=== PATIENT | female | born 1995 | race African-American/Black ===

== ENCOUNTER 2023-05-08 15:09 | Emergency (ER) | payer OTHER, SELFPAY ==
--- NOTE | ~2023-05-08 | XR_ITS ---
EXAMINATION: XR chest 1V portable INDICATION: Shortness of breath TECHNIQUE: Portable AP chest at 1746 hours COMPARISON: None available FINDINGS: There are minimal airspace opacities of the right lung base. No pleural effusion or pneumot horax. The cardiomediastinal silhouette is normal. IMPRESSION: 1. Minimal right basilar airspace opacity, consistent with atelectasis versus pneumonia. Reviewed, dictated and finalized at location F. IMPRESSION: 1. Minimal right basilar airspace opacity, consistent with atelectasis versus p neumonia.
[2023-05-08 15:34] VITALS: BP 114/66; PULSE 94; RESP 14; TEMP 36.4; O2SAT 100
[2023-05-08 16:08] VITALS: O2SAT 99
[2023-05-08] MEDS: ALBUTEROL SULFATE NEB 2.5 MG/3 ML INH INHALATION (17:47)
[2023-05-08] MEDS: IPRATROPIUM BR 0.02% INH SOLN 0.5 MG/2.5 ML VIAL INHALATION (17:47)
[2023-05-08 17:49] VITALS: PULSE 85; RESP 20
[2023-05-08 18:00] VITALS: PULSE 82; RESP 20
[2023-05-08] MEDS: predniSONE 20 MG TABLET 60 MG PO (18:01)
--- NOTE | 2023-05-08 21:04 | ED.GENADULT ---
HPI - General Adult General Chief complaint: Asthma Stated complaint: asthma exacerbation Time Seen by Provider: 05/08/23 17:03 Source: patient Mode of arrival: ambulatory Limitations: no limitations History of Present Illness HPI narrative: 28-year-old female presents today with complaints of increasing shortness of breath and wheezing that started today. Patient has a history of asthma that was diagnosed in December. Patient is only on albuterol. Patient has used her albuterol multiple times today with little relief. 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 She told her office that she could not drive that due to her asthma but they still placed her in the diesel. Not long after being on it she started with some chest tightness and shortness of breath using her albuterol inhaler without relief. Patient has last been at her primary care in October. Related Data Allergies Allergy/AdvReac Type Severity Reaction Status Date / Time ibuprofen Allergy Severe Rash Verified 05/08/23 15:09 Review of Systems Review of Systems: All systems reviewed & are unremarkable except as noted in HPI and below [facility] Social History Social History (Updated 06/07/22 @ 10:11 by Esperanza Farfan MA) Smoking status: Never smoker Alcohol intake: never Substance use: never Substance use type: does not use Living arrangements: alone Gender identity (if verbalized by the patient): Female Sexual Orientation (if Verbalized by the Patient): Straight or Heterosexual Exam Const: General: cooperative, healthy appearing, comfortable, no acute distress and well developed Orientation/consciousness: patient oriented x3 HENMT: Head: normal to inspection Eyes: General: appearance normal, both eyes and all related structures Resp: Effort & Inspection: normal respiratory effort and able to speak in complete sentences Auscultation: no wheezes and diminished lung sounds Cardio: Rate: regular rate Rhythm: regular rhythm Heart sounds: S1 normal heart sound present and S2 normal heart sound present Neuro: General: patient oriented x3 Course Course Emergency Course: Patient with improvement after receiving albuterol ipratropium and prednisone. Discussed x-ray findings. Patient to be discharged home with p.o. antibiotics, steroids, and albuterol. Patient is to follow-up with primary care provider. Vital Signs Vital signs: Vital Signs Temperature 97.5 F L 05/08/23 15:34 Pulse Rate 94 05/08/23 15:34 Respiratory Rate 14 05/08/23 15:34 Blood Pressure 114/66 05/08/23 15:34 Pulse Oximetry 100 05/08/23 15:34 Oxygen Delivery Room Air 05/08/23 15:34 Temperature 97.5 F L 05/08/23 15:34 Pulse Rate 82 05/08/23 18:00 Respiratory Rate 20 05/08/23 18:00 Blood Pressure 114/66 05/08/23 15:34 Pulse Oximetry 99 05/08/23 16:08 Oxygen Delivery Room Air 05/08/23 16:08 Medical Decision Making MDM Narrative Medical decision making narrative: 28-year-old female HPI as noted. Differentials as noted below. Patient with congestion but states that it has been that way for many months. Denies any runny nose, cough, postnasal drip low suspicion for URI. Chest x-ray shows a possible pneumonia to right base. Symptoms do not correlate with pneumonia but due to asthma and cute onset will treat with antibiotics at this time. P.o. steroids and albuterol also. Patient has been obstruction is follow-up with her primary care provider for further management of her asthma as she might need new medications. She states she is understanding and okay with being discharged home Differential Diagnosis Differential Diagnosis: Asthma exacerbation, pneumonia, shortness of breath, URI Vital Signs Vital Signs: Vital Signs Temperature 97.5 F L 05/08/23 15:34 Pulse Rate 94 05/08/23 15:34 Respiratory Rate 14 05/08/23 15:34 Blood Pressure 114/66 05/08/23 15:34 Pulse Oximetry 100 05/08/23 15:34 Oxygen D
== END 2023-05-08 18:32 | disposition home or self-care (01) ==
PROVIDERS: Emergency Provider Nurse Practitioner Family
DX: J45.901 Unspecified asthma with (acute) exacerbation (principal)
CPT/HCPCS: 71045; 94640; 99283; J7512

== ENCOUNTER 2024-03-24 07:42 | Outpatient (CLI) | payer OTHER, SELFPAY ==
[2024-03-24 08:21] LABS: Hematocrit 31.2 % (37.0-47.0)
== END 2024-03-24 07:43 | disposition home or self-care (01) ==
LOC: ANHSURGERY 07:48
PROVIDERS: Anesthesiology; Visit Provider Obstetrics & Gynecology
DX: N93.9 Abnormal uterine and vaginal bleeding, unspecified (principal)
CPT/HCPCS: 36415; 85014; 85018

== ENCOUNTER 2024-03-29 00:09 | Day surgery (SDC) | payer OTHER, SELFPAY ==
[2024-03-19 16:20] VITALS: BMI 21.9
--- NOTE | 2024-03-19 16:21 | PC.NURSE ---
Report to the Outpatient Waiting Room, entrance under the green pavilion located off [facility], at time ___1130am____ on date ___[id number]____. Planned Procedure Time: ____1:30pm____. Time changes happen often and if your time is changed the preop area will call you the afternoon before. - You and your visitor will be asked to self-screen and do not enter if you have any COVID symptoms. - A mask is optional within the hospital at this time. Patients may have clear liquids (water, carbonated beverages, clear teas, apple juice) until 3 hours prior to surgery with a maximum of 20 ounces. STOP AT 10:30 AM No food from midnight until time of surgery - Take the following medications with a SIP of water the morning of surgery: N/A (PATIENT IS NOT ON ANY HOME MEDICATIONS) PATIENT IS RECEIVING WEEKLY IRON INFUSIONS EVERY FRIDAY. CONTINUE YOUR IRON INFUSIONS UP UNTIL DATE OF SURGERY PER DR. TRACY. Please no make-up, nail micronesian, hairspray, perfume, deodorant, or body powder the day of surgery. No jewelry (including any body piercings) or valuables the day of surgery, leave them at home. Please take a shower or bath the night before, or the morning of, surgery with an antibacterial soap. Wear comfortable, loose fitting clothing. - Jewelry must be removed prior to entering the operating room. Rings and piercings that are not removed may be cut off. - The hospital will not accept responsibility for valuables. - Please leave all valuables, including medications, at home the day of surgery. If you are going home after surgery, a licensed shuttle bus driver must drive you home. - NO public transportation without another adult if you receive anesthesia. - We recommend that an adult stay with you for 24 hours following discharge. - We also recommend that you do not drive, make important decision, drink alcoholic beverages, or take any drugs that were not prescribed by your health care provider for at least 24 hours after your discharge time. Follow any additional instructions given to you from your surgeon. If you or anyone in your household have experienced Covid symptoms in the past week, please notify your surgeon or the nurse liaison at the phone number below for possible testing. Telephone instructions given to RUPAMARILEE (PATIENT) and asked if any additional questions and then verbalized understanding. *Patient advised to call surgeon office or pre surgery nurse liaison [phone] if any additional questions.
--- NOTE | 2024-03-29 06:54 | WPDHPUPDATE1 ---
History and Physical Update Update Date/Time: 03/29/24 06:54 History and Physical has been reviewed, including an updated exam of the patient. There are NO changes in the patient's condition. Risks, benefits, and alternatives have been discussed and questions answered. Patient agrees to proceed with hysteroscopy with D&C..
[2024-03-29 09:49] VITALS: BP 127/62; PULSE 72; RESP 16; TEMP 36.2; O2SAT 100
[2024-03-29] MEDS: ACETAMINOPHEN 500 MG TABLET 1000 MG PO (10:19)
--- NOTE | 2024-03-29 11:35 | WPDANESEPPF ---
Anes - Initial Pre Proc Eval Procedure: Operation Date: 03/29/24 13:30 Proposed Procedures p Hysteroscopy Dilation and Curettage - Germaine Preston MD Date/Time: 03/29/24 11:35 Surgeon: Germaine Preston MD Pre Op Diagnosis: abnormal uterine bleeding Patient Data Age: 28 Gender: F Height: 1.63 m Weight: 58.1 kg Last Vital Signs Temp 36.2 C L 03/29/24 09:49 Pulse 72 03/29/24 09:49 Resp 16 03/29/24 09:49 BP 127/62 03/29/24 09:49 Pulse Ox 100 03/29/24 09:49 O2 Del Method Room Air 03/29/24 09:49 Allergies Allergy/AdvReac Type Severity Reaction Status Date / Time diphenhydramine Allergy Severe Hives Verified 03/29/24 09:58 [From Benadryl] ibuprofen Allergy Severe Rash Verified 03/29/24 09:58 Home Medications Medication Instructions Recorded Confirmed Type No Home Medications 03/18/24 03/29/24 History Patient hx anesthesia problems: none Family hx anesthesia problems: none Results Review: All pre-operative results and documents have been reviewed as part of the pre-operative evaluation. [facility] Past Medical History Medical History Exposure to sexually transmitted disease (STD) Social History Social History Smoking status: Never smoker Second hand tobacco smoke exposure: No Alcohol intake: current Drinks per week: 3 Substance use: never Substance use type: former substance user and marijuana Lack of Transportation: No Lack of Food: Never True Current Housing: I Have Housing Concerned About Future Housing: No Difficulty Paying Gas/Electric Bills: No Difficulty Paying for Meds: No Currently Unemployed: No Education: High School Diploma/GED Difficulty w/ Childcare or Family Care: No Living arrangements: alone Occupation/Education: occupation Gender identity (if verbalized by the patient): Female Sexual Orientation (if Verbalized by the Patient): Straight or Heterosexual Spiritual care concerns: No Anes - Eval Final PreProcedure Day of Procedure 03/29/24 11:35 Patient weight: normal Heart: regular rate and rhythm Lungs: clear to auscultation Airway: Mallampati scale class II Neurological: alert and oriented Last oral intake: >/= 8 hours ASA classification: II Emergent: no Anesthetic plan: proceed Anesthesia type and monitoring: general GIVS and standard monitoring Results Review: All pre-operative results and documents have been reviewed as part of the pre-operative evaluation. Informed Consent: The patient's anesthetic plan and its attendant risks and benefits were discussed with the patient/family/POA. Questions were solicited and answers provided to the satisfaction of the patient/family/POA.
[2024-03-29] MEDS: LACTATED RINGERS 1,000 ML 30 ML IV CONT (11:48)
--- NOTE | 2024-03-29 12:23 | W.PM.PROC2 ---
Procedure Note - Detailed Date of Procedure 03/29/24 Pre-op Diagnosis abnormal uterine bleeding anemia Post-op Diagnosis Same Procedure Performed Hysteroscopy with D&C Surgeon Germaine Preston MD Anesthesia MAC Findings Uterus sounded to 6cm, diffusely thickened endometrium throughout the cavity (pictures obtained). Bilateral tubal ostia visualized. Good hemostasis at end of case. Fluid deficit: 90cc. Description of Procedure Martinez was taken to the operating room where she was placed under sedation without complications. She was then prepped and draped in the usual sterile fashion in the dorsal lithotomy position with her legs in low Mart stirrups. A time-out was performed and no perioperative antibiotics were indicated. A bivalve speculum was placed within the vagina where the cervix was easily identified. The anterior lip of the cervix was grasped with a single-tooth tenaculum. The cervix was then serially dilated to allow for the hysteroscope. The hysteroscope was advanced into the uterine cavity with the above findings noted. A curettage was then performed until a good uterine cry was felt throughout the uterus. The hysteroscope was once again advanced into the uterine cavity where it was noted to be normal. Good hemostasis was noted. All instruments were removed from the vagina. Sponge, lap, instrument, and needle counts were correct at the end of the procedure. Patient was awoken from anesthesia and taken to recovery with plans of same-day discharge home. Estimated Blood Loss 20 IV Fluids 700 Pathology Yes (endometrial curettings) Complications No immediate complications Condition Stable Disposition Same day [facility] Billing Surgery - Charge Forward: Surgery Billing
[2024-03-29 12:27] VITALS: BP 103/62; PULSE 51; RESP 14; O2SAT 100
[2024-03-29 12:55] VITALS: BP 110/74; PULSE 70; RESP 14
[2024-03-29 13:25] VITALS: BP 110/74; PULSE 72; RESP 14
== END 2024-03-29 13:44 | disposition home or self-care (01) ==
PROVIDERS: Visit Provider Obstetrics & Gynecology
PROC: 0U5B8ZZ Destruction of Endometrium, Via Natural or Artificial Opening Endoscopic (ICD-10-PCS; CPT 58563; principal; 2024-03-29 13:30)
DX: N93.9 Abnormal uterine and vaginal bleeding, unspecified (principal); D64.9 Anemia, unspecified
CPT/HCPCS: 58558; 88305; A9270; J2250; J2704; J3010; J7120

== ENCOUNTER 2024-05-14 00:13 | Day surgery (SDC) | payer OTHER, SELFPAY ==
[2024-05-11 10:40] VITALS: BMI 21.9
--- NOTE | 2024-05-11 10:52 | PC.NURSE ---
Report to the Outpatient Waiting Room, entrance under the green pavilion located off [facility], at time _1000_ on date _05/14/24_. Planned Procedure Time: _1200__. Time changes happen often and if your time is changed the preop area will call you the afternoon before. - You and your visitor will be asked to self-screen and do not enter if you have any COVID symptoms. - A mask is optional within the hospital at this time. Patients may have clear liquids (water, carbonated beverages, clear teas, apple juice) until 3 hours prior to surgery with a maximum of 20 ounces. - No food from midnight until time of surgery - Infants may have breast milk until 4 hours before surgery, formula 6 hours prior to surgery. - Children will be allowed to drink immediately following surgery. If applicable, please bring a bottle or sippy cup to assist with drinking. Juice, water, soda, and popsicles are readily available. For infants on formula, please bring formula the day of surgery. Pacifiers are allowed. Take the following medications with a SIP of water the morning of surgery: ALBUTEROL IF NEEDED DO NOT STOP ANY OF YOUR OTHER PRESCRIPTION MEDICATIONS PRIOR TO SURGERY ?EXCEPT THE FOLLOWING Medications to discontinue per physician NONE Date to take last dose Please no make-up, nail hebrew, hairspray, perfume, deodorant, or body powder the day of surgery. No jewelry (including any body piercings) or valuables the day of surgery, leave them at home. Please take a shower or bath the night before, or the morning of, surgery with an antibacterial soap. Wear comfortable, loose fitting clothing. Children are encouraged to wear pajamas. - Jewelry must be removed prior to entering the operating room. Rings and piercings that are not removed may be cut off. - The hospital will not accept responsibility for valuables. - Please leave all valuables, including medications, at home the day of surgery. If you are going home after surgery, a licensed truck driver salesperson must drive you home. - NO public transportation without another adult if you receive anesthesia. - We recommend that an adult stay with you for 24 hours following discharge. - We also recommend that you do not drive, make important decision, drink alcoholic beverages, or take any drugs that were not prescribed by your health care provider for at least 24 hours after your discharge time. For Pediatric surgeries, we recommend two adults accompany the child home. Follow any additional instructions given to you from your surgeon. If you or anyone in your household have experienced Covid symptoms in the past week, please notify your surgeon or the nurse liaison at the phone number below for possible testing. Telephone instructions given to and asked if any additional questions and then verbalized understanding. Patient advised to call surgeon office or pre surgery nurse liaison [phone] if any additional questions.
[2024-05-14] VITALS (9 sets, daily range): BP systolic 115–132; BP diastolic 58–87; PULSE 63–81; RESP 12–18; TEMP 35.9–37.3; O2SAT 98–100; BMI 22.1
--- NOTE | 2024-05-14 07:28 | WPDHPUPDATE1 ---
History and Physical Update Update Date/Time: 05/14/24 07:28 History and Physical has been reviewed, including an updated exam of the patient. There are NO changes in the patient's condition. Risks, benefits, and alternatives have been discussed and questions answered. Patient agrees to proceed with robotic assisted total laparoscopic hysterectomy with bilateral salpingectomy and cystoscopy.
[2024-05-14] MEDS: LACTATED RINGERS 1,000 ML 30 ML IV CONT ×2 (10:30→14:35)
--- NOTE | 2024-05-14 10:35 | P.PNAN_ITS ---
Anes - Initial Pre Proc Eval Procedure: Operation Date: 05/14/24 12:00 Proposed Procedures p Robotic Assisted Total Laparoscopic Hysterectomy with Bilateral Salpingectomy - Germaine Preston MD Date/Time: 05/14/24 10:35 Surgeon: Germaine Preston MD Pre Op Diagnosis: Abnormal Uterine Bleeding Patient Data Age: 29 Gender: F Height: 1.63 m Weight: 58.55 kg Last Vital Signs Temp 97.1 F L 05/14/24 09:40 Pulse 68 05/14/24 09:40 Resp 16 05/14/24 09:40 BP 115/71 05/14/24 09:40 Pulse Ox 100 05/14/24 09:40 O2 Del Method Room Air 05/14/24 09:40 Allergies Allergy/AdvReac Type Severity Reaction Status Date / Time diphenhydramine Allergy Severe Hives Verified 05/14/24 10:16 [From Benadryl] ibuprofen Allergy Severe Rash Verified 05/14/24 10:16 Home Medications Medication Instructions Recorded Confirmed Type albuterol sulfate 90 mcg/actuation 2 inh inhalation PRN PRN Shortness 05/11/24 05/11/24 History aerosol inhaler Of Breath Or Wheezing Patient hx anesthesia problems: none Family hx anesthesia problems: none Results Review: All pre-operative results and documents have been reviewed as part of the pre- operative evaluation. [facility] Social History Social History Smoking status: Never smoker Second hand tobacco smoke exposure: No Alcohol intake: current Drinks per week: 3 Substance use: former Substance use type: marijuana Other substance usage details: NOV 2023 Lack of Transportation: No Lack of Food: Never True Current Housing: I Have Housing Concerned About Future Housing: No Difficulty Paying Gas/Electric Bills: No Difficulty Paying for Meds: No Currently Unemployed: No Education: High School Diploma/GED Difficulty w/ Childcare or Family Care: No Living arrangements: alone Occupation/Education: occupation Gender identity (if verbalized by the patient): Female Sexual Orientation (if Verbalized by the Patient): Straight or Heterosexual Spiritual care concerns: No Anes - Eval Final PreProcedure Day of Procedure 05/14/24 10:35 Patient weight: normal Heart: regular rate and rhythm Lungs: clear to auscultation Airway: Mallampati scale class II Neurological: alert and oriented Last oral intake: >/= 8 hours ASA classification: II Emergent: no Anesthetic plan: proceed Anesthesia type and monitoring: general ETT and standard monitoring Results Review: All pre-operative results and documents have been reviewed as part of the pre- operative evaluation. Informed Consent: The patient's anesthetic plan and its attendant risks and benefits were discussed with the patient/family/POA. Questions were solicited and answers provided to the satisfaction of the patient/family/POA.
[2024-05-14] MEDS: ACETAMINOPHEN 500 MG TABLET 1000 MG PO ×3 (10:48→23:07)
[2024-05-14] MEDS: KETOROLAC 15 MG/ML VIAL (*BKC) IV PUSH (10:48)
[2024-05-14 11:18] LABS: BEDSIDEPREGUCG Negative
[2024-05-14] MEDS: ceFAZolin 2 GM/D5W 50 ML 2 GM/50 ML BAG IVPB (12:14)
[2024-05-14] MEDS: metroNIDAZOLE 500 MG/ISO 100ML 500 MG/100 ML BAG 100 MG IVPB (12:14)
[2024-05-14] MEDS: LIDO 1%/EPINEPHRINE 1:100,000 20 ML VIAL INFILTRATE (13:16)
--- NOTE | 2024-05-14 14:21 | W.PM.PROC2 ---
Procedure Note - Detailed Date of Procedure 05/14/24 Pre-op Diagnosis Abnormal Uterine Bleeding Pelvic pain Post-op Diagnosis Other (endometriosis) Procedure Performed Robotic assisted total laparoscopic hysterectomy with bilateral salpingectomy and cystoscopy Surgeon Germaine Preston MD [employer] Sampler Kwadwo Anesthesia General and Local (20cc of 1% lido w/ epi) Findings Uterus sounded to 8cm; cervix 2.5cm. Right ovary with small fibroma, normal appearing. Less than 1cm fibroid on posterior/left uterine wall. Fallopian tubes with endometriosis. Left ovary with area of endometriosis. Endometriosis noted throughout pelvis, noted on posterior uterus, significant scarring/endometrial implants involving the posterior cul-de-sac and right uterosacral ligament. Good hemostasis at end of case. Normal bladder without defects/masses and filled without issue. Bilateral ureteral efflux noted. Uterus, cervix, bilateral fallopian tubes: 77.7g Description of Procedure Martinez was taken to the operating room where she was placed under general anesthesia without issues. She received 2 g Ancef and 500mg Metronidazole. She was then prepped and draped in the usual sterile fashion in the dorsal lithotomy position with her legs in low Mart stirrups, her arms tucked at her side, with a strap over her chest. A time-out was performed. My attention was turned down below where a fleming catheter was placed. A bivalve speculum was placed within the vagina. The cervix was easily identified and the anterior lip of the cervix was grasped with single-tooth tenaculum. The uterus was then sounded to 8cm. The cervix was serially dilated to allow for the ELIGIO uterine manipulator; which was placed w/o issue (6cm tip with 2.5cm cervical ring). My gloves were changed and attention was then turned to the abdomen. A 5 mm trocar was placed under direct visualization at Nur's point without issue. Once intra-abdominal placement was confirmed, the abdomen was insufflated with carbon dioxide gas. An abdominal survey was performed and the above findings were noted. Two additional ports were placed on the right and left side and the camera port was placed supraumbilical under direct visualization without issues. The 5mm port was switched out for the accessory port under direct visualization. The patient was then placed in deep Trendelenburg, with the legs slightly lowered. The robot was then docked. The instruments were placed intra-abdominally under direct visualization. I then un-scrubbed and went to the robotic console. I then started my hysterectomy on the right side. The ureter was easily identified transperitoneally and well out of the surgical field. The fallopian tube was elevated and the mesosalpinx was coagulated and transected. The round ligament was clamped, coagulated, and transected. The uterine ovarian artery was then serially clamped, coagulated, and transected with good hemostasis. The broad ligament was then dissected anteriorly and posteriorly skeletonizing the uterine artery. The bladder flap was then developed on the right side and carried around the left, anteriorly. The uterine artery was then serially clamped and coagulated. Once the vessel was adequately coagulated, it was then transected with good hemostasis. The same procedure was then performed on the left side without complications. The uterus was noted to be devascularized. The bladder flap was verified out of the surgical field and the colpotomy was started anteriorly and continued in a clockwise fashion until the uterus was released. The uterus was removed from the abdomen via the vagina without complications. The vaginal cuff had small bleeders that were made hemostatic without complications. The vaginal cuff was then reapproximated using a 0 V lock suture. The pelvis was then irrigated and suctioned free of all clots and debris. Good hemostasis was noted. All instruments were removed from the abdomen and the robot
--- NOTE | 2024-05-14 16:00 | PC.NURSE ---
This patient, Martinez White, was received from PACU on 05/14/24 at 1600. Patient/family oriented to unit policies and routines.
[2024-05-14] MEDS: DEXTROSE 5%/LACTATED RINGERS 1,000 ML 125 ML IV CONT (16:57)
[2024-05-14] MEDS: DOCUSATE SODIUM 100 MG CAPSULE PO (17:05)
[2024-05-14] MEDS: SIMETHICONE 80 MG TAB.CHEW PO (17:05)
[2024-05-14] MEDS: oxyCODONE HCL (*CRX) 5 MG TAB IR PO (20:54)
[2024-05-15 00:15] VITALS: BP 106/56; PULSE 63; RESP 12; TEMP 36.8; O2SAT 100
[2024-05-15 03:51] VITALS: BP 98/53; PULSE 62; RESP 12; TEMP 37.1; O2SAT 100
[2024-05-15] MEDS: ACETAMINOPHEN 500 MG TABLET 1000 MG PO (05:04)
[2024-05-15 05:17] LABS: Hematocrit 36.5 % (37.0-47.0); Hemoglobin 11.5 g/dL (12.0-15.0); Immature Granulocyte Absolute 0.02 K/mm3 (0.00-0.031); Immature Granulocyte Percent A 0.3 % (0-0.5); Immature Platelet Fraction Pct 4.9 % (0.9-11.2); Lymphocytes Absolute Auto 0.48 K/mm3 (0.9-3.2); Lymphocytes Percent Auto 6.1 % (18.3-44.2); Mean Corpuscular HGB Conc 31.5 g/dl (32-36); Mean Corpuscular Hemoglobin 26.3 pg (26-34); Mean Corpuscular Volume 83.3 fl (80-100); Mean Platelet Volume 11.9 fl (7.4-10.4); Monocytes Absolute Auto 0.6 K/mm3 (0.1-0.6); Monocytes Percent Auto 7.8 % (2.6-8.5); Neutrophils Absolute Auto 6.8 K/mm3 (1.3-6.7); Neutrophils Percent Auto 85.8 % (45.5-73.1); Platelet Count Result 241 k/mm3 (150-375); Red Blood Count 4.38 M/mm3 (4.2-5.4); Red Cell Distribution Width 24.9 % (11.5-14.5); White Blood Count 7.9 K/mm3 (4.5-10.0)
[2024-05-15 05:25] LABS: Anion Gap 9 mmol/L (4-12); Blood Urea Nitrogen 7 mg/dL (7-17); Carbon Dioxide 25 mmol/L (22-30); Chloride 101 mmol/L (98-107); Estimated CRCL calculation 102 ml/min; Estimated Glomerular Filt Rate > 60; Glucose 88 mg/dL (65-110); Potassium 3.7 mmol/L (3.4-5.0); Sodium 135 mmol/L (137-145)
[2024-05-15 05:44] LABS: Anisocytosis 1+; Platelet Estimate Adequate (Adequate)
[2024-05-15 05:45] LABS: Schistocytes None Seen
[2024-05-15 07:45] VITALS: BP 109/57; PULSE 69; RESP 18; TEMP 36.8; O2SAT 100
--- NOTE | 2024-05-15 08:28 | PM.GYNPNOP ---
LEAD DEVELOPER - A/P Assessment and plan (1) S/P laparoscopic hysterectomy: Code(s): Z90.710 - Acquired absence of both cervix and uterus Status: Acute (2) Endometriosis determined by laparoscopy: Code(s): N80.9 - Endometriosis, unspecified Status: Acute Postoperative Procedures: Procedures Operation Date: 05/14/24 12:00 Actual Procedure Side Surgeon p Robotic Assisted Total Laparoscopic Hysterectomy with Bilateral Salpingectomy and Cystoscopy Bilateral Germaine Preston MD Postoperative day: 1 Postoperative status: doing well Postoperative plan: routine post-op care and discharge Time Spent With Patient Time: Total time spent is greater than 50% in coordination of care (as documented) at patient's floor/unit and/or counseling patient: Time with patient: less than 15 minutes LEAD DEVELOPER- PN:Subj Post-Op Subjective Date/time seen: 05/15/24 08:02 Interval history: POD#1 Martinez reports doing well today. No issues overnight. Her pain is controlled with PO meds. She has tolerated clear liquids; about to order breakfast. She denies any vaginal bleeding. She has voided. She has not passed flatus yet. She has ambulated and denies any symptoms of anemia. Review of Systems Review of Systems: All systems reviewed & are unremarkable except as noted in HPI and below (HPI) Constitutional: Constitutional: Denies chills, Denies fever(s) and Denies headache(s) Eyes: Eyes: Denies change in vision ENT: Denies dizziness and Denies headache(s) Cardiovascular: Cardiovascular: Denies chest pain and Denies rapid heart rate Respiratory: Respiratory: Denies cough Genitourinary: Genitourinary: Denies abnormal vaginal bleeding Neurologic: Denies dizziness and Denies headache(s) Exam Const: General: cooperative, healthy appearing, comfortable and no acute distress Orientation/consciousness: patient oriented x3 Resp: Effort & Inspection: normal respiratory effort Auscultation: clear to auscultation bilaterally Cardio: Rate: regular rate GI: Inspection: normal to inspection and incision ( LSC incisions c/d/i) GI Palp: Yes abdominal tenderness (appropriate) and Yes Soft to palpation Auscultation: normal bowel sounds : Other: normal bleeding on pad Skin: General skin exam: normal color Neuro: General: patient oriented x3 Psych: Appearance: grossly normal Affect: normal affect Attitude: cooperative LEAD DEVELOPER - PN: Obj Data Vital Signs Vital Signs: Vital Signs - 24 hr 05/14/24 09:40 05/14/24 14:35 05/14/24 14:50 Temperature 97.1 F L 96.6 F L 97.0 F L Pulse Rate 68 74 72 Respiratory Rate 16 18 16 Blood Pressure 115/71 119/58 L 121/69 Pulse Oximetry 100 100 98 Oxygen Delivery Room Air Simple Face Mask Simple Face Mask Oxygen Flow Rate 12 10 05/14/24 15:05 05/14/24 15:20 05/14/24 15:35 Temperature 97.3 F L 98.1 F Pulse Rate 77 81 71 Respiratory Rate 12 12 14 Blood Pressure 129/66 126/85 118/85 Pulse Oximetry 100 98 100 Oxygen Delivery Simple Face Mask Room Air Room Air Oxygen Flow Rate 10 05/14/24 15:50 05/14/24 16:15 05/14/24 18:35 Temperature 97.6 F 99.1 F Pulse Rate 63 75 81 Respiratory Rate 16 16 12 Blood Pressure 132/87 117/70 126/67 Pulse Oximetry 100 100 100 Oxygen Delivery Room Air Oxygen Flow Rate Intake/Output Intake/Output: Intake & Output 05/11/24 05/12/24 05/13/24 05/14/24 23:59 23:59 23:59 23:59 Intake Total 1700 Output Total 480 Balance 1220 Meds/Results Medications: Active Medications Generic Name Dose Route Start Last Admin Trade Name Freq PRN Reason Stop Dose Admin Acetaminophen 1,000 mg 05/14/24 17:00 05/14/24 17:05 Acetaminophen 500 Mg Tablet PO 1,000 mg Q6H CAPRICE Administration Docusate Sodium 100 mg 05/14/24 17:00 05/14/24 17:05 Docusate Sodium 100 Mg Capsule PO 100 mg BID CAPRICE Administration Hydromorphone HCl 0.5 mg 05/14/24 15:55 Hydromorphone Hcl Inj (*Crx) 1 Mg/Ml Syr IV PUSH
--- NOTE | 2024-05-15 09:53 | WPDANESPN ---
Anes - Prog Note Post-Op Date/Time: 05/15/24 09:53 Cardiovascular status: normal Respiratory status: normal Airway patency: baseline Mental status: baseline Post-Op hydration status: normal Vital Signs: Last Vital Signs Temp 36.8 C 05/15/24 07:45 Pulse 69 05/15/24 07:45 Resp 18 05/15/24 07:45 BP 109/57 L 05/15/24 07:45 Pulse Ox 100 05/15/24 07:45 O2 Del Method Room Air 05/15/24 07:45 O2 Flow Rate 10 05/14/24 15:05 Pain Score (VAS): 5 I/O: Intake & Output 05/14/24 05/15/24 05/15/24 23:59 07:59 15:59 Intake Total 1500 Output Total 100 1730 Balance -100 -230 Laboratory Tests 05/15/24 04:00 05/15/24 04:00 05/14/24 05/14/24 05/15/24 09:55 10:42 04:00 WBC 7.9 RBC 4.38 Hgb 11.5 L Hct 36.5 L MCV 83.3 MCH 26.3 MCHC 31.5 L RDW 24.9 H Plt Count 241 MPV 11.9 H Immature Gran % (Auto) 0.3 Neut % (Auto) 85.8 H Lymph % (Auto) 6.1 L [place] % (Auto) 7.8 Eos % (Auto) 0.0 Baso % (Auto) 0.0 L Lymph # (Auto) 0.48 L [place] # (Auto) 0.6 Eos # (Auto) 0.0 Baso # (Auto) 0.0 Abs Immat Gran (auto) 0.02 Absolute Neuts (auto) 6.8 H Absolute Nucleated RBC 0.000 Nucleated RBC % 0.0 Platelet Estimate Adequate % Immature Plt Fraction 4.9 Anisocytosis 1+ Schistocytes None seen Sodium 135 L Potassium 3.7 Chloride 101 Carbon Dioxide 25 Anion Gap 9 BUN 7 Creatinine 0.60 L Estim Creat Clear Calc 102 Estimated GFR > 60 Glucose 88 Calcium 9.0 POC Urine HCG, Qual Negative POC Ur Preg QC Yes Blood Type A Positive Antibody Screen Negative Post-procedural complaints: none Patient Feedback: Patient satisfied with anesthetic care.
[2024-05-15] MEDS: oxyCODONE HCL (*CRX) 5 MG TAB IR PO (10:30)
[2024-05-15] MEDS: DOCUSATE SODIUM 100 MG CAPSULE PO (10:30)
[2024-05-15] MEDS: SIMETHICONE 80 MG TAB.CHEW PO (10:31)
== END 2024-05-15 10:35 | disposition home or self-care (01) ==
LOC: ANHSURGERY 16:02 → ANHOB2 16:06
PROVIDERS: Anesthesiology; Visit Provider Obstetrics & Gynecology
PROC: (CPT 58571; principal; 2024-05-14 12:00)
DX: N80.203 Endometriosis of bilateral fallopian tubes, unspecified depth (principal); N80.102 Endometriosis of left ovary, unspecified depth; N80.00 Endometriosis of the uterus, unspecified; N80.329 Endometriosis of the posterior cul-de-sac, unspecified depth; N80.3C1 Endometriosis of the right uterosacral ligament, unspecified depth; N87.9 Dysplasia of cervix uteri, unspecified; D25.1 Intramural leiomyoma of uterus; D25.2 Subserosal leiomyoma of uterus; N83.8 Other noninflammatory disorders of ovary, fallopian tube and broad ligament; Z79.51 Long term (current) use of inhaled steroids
CPT/HCPCS: 58571; S2900; 36415; 80048; 85025; 85055; 86850; 86900; 86901; 88307; 99199; A9270; J0690; J1100; J1170; J1836; J1885; J2250; J2405; J2704; J3010; J7030; J7120; J7121